=== PATIENT | female | born 2000 | race Caucasian/White ===

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

== ENCOUNTER 2019-06-02 22:34 | Emergency (ER) | payer BC ==
[~2019-06-02] VITALS: Ht 152.4 cm; Wt 52.2 kg
[2019-06-02 22:45] VITALS: BP_SYST 105
--- NOTE | 2019-06-02 22:51 | NUR ---
Patient triaged and placed in waiting room. VSS and patient appears in no acute distress at this time. Accompanied by , awaiting available bed, and MD notified of need for MSE.
--- NOTE | 2019-06-02 23:37 | NUR ---
Pt ambulatory to bed hallway for evaluation
[2019-06-03] MEDS ORDERED: IBUPROFEN 800 MG TABLET PO ONE
[2019-06-03] MEDS ORDERED: HYDROcodone/ACETAMIN 5-325 MG TAB (NORCO/ VICODIN) PO ONE
--- NOTE | 2019-06-03 | NUR ---
JOAN Smart at bedside examining patient.
--- NOTE | 2019-06-03 00:05 | NUR ---
Pt came to the ED for acute L 5th digit pain status blunt trauma to the hand 4 days ago. Reports she had a heavy door closed on her hand. reports she was seen at a urgent care and she was told her finger was "dislocated." however, they did not set her finger. Reports pain worsens with movement. Denies n/v/d or fever. No other complaints/injuries noted. Will cont. to monitor.
[2019-06-03 00:24] VITALS: BP_SYST 105
--- NOTE | 2019-06-03 00:24 | NUR ---
Patient given written and verbal discharge instructions and verbalizes understanding. ER MD Dr. Hamilton discussed with patient the results and treatment provided. Patient in stable condition. ID arm band removed. Rx of norco given. Patient educated on pain management and to follow up with PMD. Pain Scale 0/10. Opportunity for questions provided and answered. Medication side effect fact sheet provided.
== END 2019-06-03 00:24 | disposition home or self-care (01) ==
LOC: SED 22:34
DX: S63.617A Unspecified sprain of left little finger, initial encounter (principal); W23.0XXA Caught, crushed, jammed, or pinched between moving objects, initial encounter; Y93.I9 Activity, other involving external motion; Y92.89 Other specified places as the place of occurrence of the external cause; Y99.8 Other external cause status
CPT/HCPCS: 73130; 99283; J7030

== ENCOUNTER 2022-02-23 11:58 | Emergency (ER) | payer BC ==
[~2022-02-23] VITALS: Ht 152.4 cm; Wt 38.6 kg
[2022-02-23 12:10] VITALS: BP_SYST 112
[2022-02-23 14:01] LABS: BLOOD, URINE NEGATIVE (NEGATIVE); CLARITY/URINE SL CLOUDY (CLEAR); COLOR,URINE YELLOW (YELLOW); GLUCOSE,URINE NEGATIVE (NEGATIVE); KETONES,URINE TRACE (NEGATIVE); LEUKOCYTE ESTERASE ,URINE 1+ (NEGATIVE); NITRITE, URINE NEGATIVE (NEGATIVE); PROTEIN URINE 1+ (NEGATIVE); UROBILINOGEN,URINE 0.2 (0.2-1.0)
[2022-02-23 14:22] LABS: BILIRUBIN,URINE 1+ (NEGATIVE); RBC,URINE 0-3 /HPF (0-3)
[2022-02-23 14:23] LABS: BACTERIA,URINE FEW /HPF (None Seen)
[2022-02-23 14:24] LABS: MUCUS,URINE 1+ /LPF (None Seen)
[2022-02-23] MEDS ORDERED: cefTRIAXone 1 GM in LIDOCAINE 1%, 20 ML MDV 2.1 ML IM ONE (14:45)
[2022-02-23] MEDS ORDERED: DOXY100C5 PO (14:58)
[2022-02-23 16:00] VITALS: BP_SYST 114
[2022-02-27 21:06] LABS: FTA-Ab (T PALLIDUM) Non Reactive (Non Reactive)
== END 2022-02-23 16:00 | disposition home or self-care (01) ==
LOC: SED 11:58
DX: N34.2 Other urethritis (principal)
CPT/HCPCS: 36415; 81000; 86592; 86780; 87086; 87491; 96372; 99283; J0696; J2001